=== PATIENT | female | born 1985 | race Caucasian/White ===

== ENCOUNTER 2018-05-18 11:19 | Day surgery (SDC) | payer OTHER ==
[2018-05-18] VITALS (12 sets, daily range): BP systolic 95–132; BP diastolic 60–89; PULSE 62–90; RESP 12–21; Ht 152.4 cm; Wt 48.0 kg
[~2018-05-18] VITALS: Ht 152.4 cm; Wt 48.0 kg
[~2018-05-18 11:19] MED LIST: CEFAZOLIN 1 GM INJ ONE; DESFLURANE 15 MIN ONE; DEXAMETHASONE 4 MG/ML 5 ML INJ ONE; ONDANSETRON 4 MG INJ ONE
[2018-05-18] MEDS ORDERED: ATOR20TA38 PO (11:46)
[2018-05-18] MEDS ORDERED: FENTAnyl 50 MCG/ML VIAL ONE (11:47)
[2018-05-18] MEDS ORDERED: ERGO500013 PO (11:48)
[2018-05-18] MEDS ORDERED: MIDAZOLAM 1 MG/ML 2 ML INJ ONE (11:49)
[2018-05-18] MEDS ORDERED: ROCURONIUM 50 MG INJ ONE (11:52)
[2018-05-18] MEDS ORDERED: PROPOFOL 20 ML ONE (11:52)
[2018-05-18] MEDS ORDERED: SUCCINYLCHOLINE CHLORIDE 100 MG/5 ML SYG IV ONE (11:52)
[2018-05-18] MEDS ORDERED: LIDOCAINE 2% (SDV) 5 ML INJ ONE ×2 (11:52)
--- NOTE | 2018-05-18 12:00 | HPN ---
Date/Time of Note Date/Time of Note DATE: 05/18/18 TIME: 12:00 Interval H&P Admission Note Pt. seen H&P reviewed: No system changes JANE CORADO MD May 18, 2018 12:00
[2018-05-18] MEDS ORDERED: LIDOCAINE 1% (MPF) 30 ML INJ ONE (13:35)
[2018-05-18] MEDS ORDERED: BACITRACIN/POLYMYXIN 28.35 GM OINT TOP ONE (13:36)
[2018-05-18] MEDS ORDERED: PHENYLephrine 10 MG INJ ONE (13:36)
[2018-05-18] MEDS ORDERED: LIDOCAINE 1%/EPI 30 ML INJ ONE (13:37)
--- NOTE | 2018-05-18 13:57 | PREAC ---
Date/Time of Note Date/Time of Note DATE: 05/18/18 TIME: 13:56 Anesthesia Eval and Record Evaluation Time Pre-Procedure Interview DATE: 05/18/18 TIME: 13:56 Age 32 Sex female NPO: 8 hrs Preoperative diagnosis nasal septal perforation Planned procedure nasal septal reconstruction Past Medical History Past Medical History: None Surgery & Anesthesia Issues No known issue Meds Anticoagulation: No Beta Sharon within 24 hr: No Reason Beta Sharon not given: Pt. not on B-Sharon Reported Medications Ergocalciferol (Vitamin D2) (VITAMIN D2) 50,000 Unit Capsule, 59277 UNIT PO EVERY WEDNESDAY, CAP 05/18/18 Atorvastatin Calcium* (Atorvastatin Calcium*) 20 Mg Tablet, 20 MG PO QHS, #30 TAB 05/18/18 Meds reviewed: Yes Allergies Coded Allergies: No Known Allergy (Unverified , 05/18/18) Allergies Reviewed: Yes Labs/Studies Labs Reviewed: Reviewed by anesthesiologist test: Negative Pre-procedure Exam Last vitals Vital Signs Date Temp Pulse Resp B/P (MAP) Pulse Ox O2 O2 Flow FiO2 Time Delivery Rate 05/18/18 98.0 62 18 95/60 (72) 100 Room Air 12:06 Airway: Adequate mouth opening, Adequate thyromental dist Mallampati: Mallampati III Teeth: Normal Lung: Normal Heart: Normal ASA Physical Status ASA physical status: 1 Emergency: None Planned Anesthetic General/MAC: ETT Planned Pain Management Parenteral pain med, Local by surgeon Pre-operative Attestations Prior to commencing anesthesia and surgery, the patient was re-evaluated, there was verification of: *The patient's identity *The results of appropriate recent lab work and preoperative vital signs *The above evaluation not changing prior to induction *Anesthetic plan, risk benefits, alternative and complications discussed with patient/family; questions answered; patient/family understands, accepts and wishes to proceed. WILFREDO GASPAR MD May 18, 2018 13:57
[2018-05-18] MEDS ORDERED: MEPERIDINE 25 MG INJ IV PRN (14:00)
[2018-05-18] MEDS ORDERED: LEVALBUTEROL (NEB) 1.25 MG/0.5 ML AMP HHN PRN (14:00)
[2018-05-18] MEDS ORDERED: HALOPERIDOL 5 MG INJ IV PRN (14:00)
[2018-05-18] MEDS ORDERED: FENTAnyl 50 MCG/ML VIAL IV PRN ×2 (14:00)
[2018-05-18] MEDS ORDERED: ONDANSETRON 4 MG INJ IV PRN (14:00)
[2018-05-18] MEDS ORDERED: HYDROmorphONE 1 MG/5 ML IV SYRINGE IV PRN ×3 (14:00)
[2018-05-18] MEDS ORDERED: DIPHENHYDRAMINE 50 MG INJ IV PRN (14:00)
[2018-05-18] MEDS ORDERED: METOCLOPRAMIDE 10 MG INJ ONE (14:17)
--- NOTE | 2018-05-18 17:14 | SIPON ---
Date/Time of Note Date/Time of Note DATE: 05/18/18 TIME: 16:55 Operative Report Preoperative Diagnosis 1. Nasal septal perforation 2. Bilateral nasal valve collapse Postoperative Diagnosis Same Operation/Procedure Performed 1. Repair of nasal septal perforation 2. Geff of septal cartilage 3. Repair of bilateral nasal valve collapse Surgeon see signature line respiratory care assistant None Anesthesia: general Estimated blood loss: minimal Transfusion Required none Specimen None Grafts/Implants none Complications none JANE CORADO MD May 18, 2018 17:14
--- NOTE | 2018-05-18 17:21 | OPR ---
Date/Time of Note Date/Time of Note DATE: 05/18/18 TIME: 17:15 Operative Report Procedure Date: May 18, 2018 Preoperative Diagnosis 1. Nasal septal perforation 2. Nasal valve collapse Postoperative Diagnosis Same Operation/Procedure Performed 1. Repair of nasal septal perforation 2. [place] of septal cartilage 3. 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 Due to her surgery, she developed a nasal septal perforation and severe collapse of her lateral crura into the nasal airway. Recommendation was made for reconstruction of the nasal valve region as well as repair of her nasal septal perforation. The risks, benefits, and alternatives of surgery were discussed with the patient. The risks included but not limited to bleeding, infection, scar, need for further surgery, no improvement in symptoms, poor cosmetic result, pain, asymmetry, and numbness. She understood these and signed consent. Procedure Description After informed consent was obtained, the patient was brought back to the operating suite. She was intubated by anesthesia and sedated. The bed was turned 90 degrees her eyes were protected and a head drape was placed. The nose was prepped and draped in usual sterile fashion. 1% lidocaine with epinephrine was injected into the nasal septum and proposed sites of incisions. A left hemitransfixion incision was made. Bilateral mucoperichondrial flaps were elevated. A 1 cm nasal septal perforation was encountered. I then opened the nose in a standard fashion with an inverted V columellar incision and bilateral marginal incisions. This was quite tedious given the previous surgery. I then the upper lateral cartilages from the dorsal septum and then fully visualized the perforation. I was able to harvest a 1 x 1 cm piece of quadrangular cartilage from the most inferior posterior aspect of the septum. I then elevated a mucoperichondrial flap and mucoperiosteal flap on the left side all the way towards the floor of the nose towards the undersurface of the inferior turbinate. I then made a relaxing incision along the undersurface of the left inferior turbinate. This allowed me to mobilize the mucosa and closed the perforation mucosally. The perforation was closed with multiple 4-0 chromic sutures in a mattress fashion. I then placed a cartilage graft at the site of the perforated septum and mattressed it to the mucosal flap. I then closed the hemitransfixion incision with 4-0 chromic suture. I then evaluated the nasal tip. Due to previous surgery, the lateral crura were curving in towards the airway. I dissected the lateral crura fully and created pockets in the soft tissue area near the alar region. I then created auto lateral crural strut grafts bilaterally by folding the cephalic edge underneath the surface of the crura and secured him with a 5-0 PDS suture bilaterally. Tongue and groove sutures were then placed to support the tip. The nose was then closed in a standard fashion with 6-0 Prolene for the columella and 4-0 chromic for the mucosa. Silicone Pastor splints coated in antibiotic ointment were placed bilaterally and secured with a 3-0 Prolene suture. The stomach was then sent suctioned with an orogastric tube the patient handed over to anesthesia explained brought to the recovery room in stable condition. JANE CORADO MD May 18, 2018 17:21
--- NOTE | 2018-05-18 17:22 | PAC ---
Date/Time of Note Date/Time of Note DATE: 05/18/18 TIME: 17:22 Post-Anesthesia Notes Post-Anesthesia Note Last documented vital signs Vital Signs Date Temp Pulse Resp B/P (MAP) Pulse Ox O2 O2 Flow FiO2 Time Delivery Rate 05/18/18 98.0 62 18 95/60 (72) 100 Room Air 12:06 Activity: WNL Respiratory function: WNL Cardiovascular function: WNL Mental status: Baseline Pain reasonably controlled: Yes Hydration appropriate: Yes Nausea/Vomiting absent: Yes WILFREDO GASPAR MD May 18, 2018 17:22
== END 2018-05-18 18:26 | disposition home or self-care (01) ==
LOC: SDS 11:19
PROVIDERS: ATTEND Otolaryngology
DX: J34.89 Other specified disorders of nose and nasal sinuses (principal); M95.0 Acquired deformity of nose
CPT/HCPCS: 20912; 30465; 30630; 84703; J1170; J2250; J2405; J2765; J3010; Z7512; Z7610; J0690; J1100